=== PATIENT | male | born 1950 | race Caucasian/White ===

== ENCOUNTER 2020-04-12 09:30 | Day surgery (SDC) | payer BC, SELFPAY ==
[2020-03-31 09:57] VITALS: BMI 20.9
--- NOTE | 2020-04-01 12:54 | HP_ITS ---
Intake Vital Signs 03/31/20 Height 5 ft 10 in 03/31/20 Weight: 146 lb 03/31/20 BMI 20.9 03/31/20 BP 94/61 03/31/20 Blood Pressure Location Rt brachial 03/31/20 Position Sitting 03/31/20 Respiration 16 03/31/20 Pulse 64 03/31/20 Pulse Source Monitor 03/31/20 Temp 97.8 F 03/31/20 Temp Source Temporal 03/31/20 Pulse Oximetry (%) 97 03/31/20 Oxygen Delivery Method room air Intake Visit Reasons: HERNIA/ GROIN AREA Welder Gun Required: No Is patient in pain?: No Allergies No Known Allergies Allergy (Verified 03/31/20 10:05) Medications albuterol sulfate 1.25 mg INHALATION PRN ml 03/31/20 [History Confirmed 03/31/20] atenolol 25 mg tablet 12.5 mg PO DAILY tab 03/31/20 [History Confirmed 03/31/20] budesonide 3 mg capsule,delayed,extended release 3 mg PO DAILY ea 03/31/20 [History Confirmed 03/31/20] copper gluconate 2 mg tablet 4 mg PO DAILY tab 03/31/20 [History Confirmed 03/31/20] cyanocobalamin (vitamin B-12) 1,000 mcg/mL injection solution 1,000 mcg IM QMONTH ml 03/31/20 [History Confirmed 03/31/20] fluticasone propionate 50 mcg/actuation nasal spray,suspension 1 spray INTRANASAL DAILY 03/31/20 [History Confirmed 03/31/20] hydrochlorothiazide 25 mg tablet 12.5 mg PO DAILY tab 03/31/20 [History Confirmed 03/31/20] levothyroxine 75 mcg tablet 75 mcg PO DAILY tab 03/31/20 [History Confirmed 03/31/20] loratadine 10 mg tablet 10 mg PO DAILY PRN 03/31/20 [History Confirmed 03/31/20] omeprazole 40 mg capsule,delayed release 40 mg PO DAILY cap 03/31/20 [History Confirmed 03/31/20] potassium chloride 10 mEq tablet,extended release(part/cryst) 10 meq PO DAILY tab 03/31/20 [History Confirmed 03/31/20] [facility] Medical History Acid reflux (Acute) Intermittent abdominal pain (Acute) Asthma (Acute) Anxiety (Acute) Thyroid disease (Acute) Fatigue (Acute) Hypertension (Chronic) Right inguinal hernia (Acute) Right inguinal pain (Acute) Abnormality of immune system (Acute) Surgical History Hx of colonoscopy (Acute) History of esophagogastroduodenoscopy (EGD) (Acute) Status post debridement of bone spur (Acute) History of surgery on arm (Acute) Hx of lumbar discectomy (Acute) Hx of parathyroidectomy (Acute) Family History Daughter Asthma Mother Breast cancer Father Pancreatic cancer Cancer Skin cancer Hypertension Social History (Updated 04/01/20 @ 12:[address] Arben Bond MD) Smoking Status: Never smoker second hand exposure: No alcohol intake: never substance use type: does not use caffeine: No what type of physical activity do you participate in: none frequency: does not exercise seatbelt use: always HPI HPI HPI: LENNY MADRIGAL, is a 69 M who presents to the office today for HPI HPI Surgical H&P: Yes HPI: LENNY MADRIGAL, is a 69 M who presents to the office today for swelling in the right groin as well as pain. He reports is been there since about August. He says is getting worse and last week he said that it bulge and he was unable to push it back in for a long time and it was hurting a lot more than normal. Pain does not radiate. It is in the right groin. He has no other issues at this time. No nausea or vomiting or fevers or chills. ROS General General: Yes fatigue; no weight change, appetite, colon cancer, breast cancer or weakness HEENT HEENT: No difficulty swallowing, eye injury, eye surgery, swollen glands or hoarseness Endo Endocrine: Yes thyroid disease; no diabetes mellitus, thyroid cancer, Hair loss, heat intolerance or cold intolerance Musc Musculoskeletal: No back problems, arthritis, rheumatoid arthritis, gout or joint pain Cardio Cardiovascular: Yes high blood pressure; no murmur, pacemaker, heart disease, atrial fibrillation, heart attack, heart stent, palpitations, shortness of breat with exertion or chest pain Psych Psychiatric: Yes anxiety; no depression or hearing voices Resp Respiratory: No shortness of breath, No sleep apnea, No cough, No COPD, Yes asthma, No emphysema, No wheezing Gastro Gastrointestinal: Yes abdominal pain, No nausea or vomiting, No diarrhea, No constipation, No blood in stool, Yes acid reflux, No hemorrhoids, No ulcers, No gallbladder problem, No black,tarry stools Otto Hematologic: No blood thinners, No blood disorders, No bleeding, No anemia, No blood clots Neuro Neurologic: No system reviewed and no additional complaints, except as docu, No as per HPI, No abnormal walking, No abnormal hearing, No abnormal movements, No abnormal speech, No behavioral changes, No burning sensations, No confusion, No seizure-like activity, No unsteadiness, No dizziness, No localized weakness, No frequent falls, No headache(s), No lack of coordination, No loss of vision, No memory loss, No numbness, No other visual disturbances, No radiating pain, No restless legs, No sensory deficit, No fainting, No tingling, No tremor(s), No weakness, No other Exam Const General: cooperative Orientation: alert, oriented x3 HENMT Head: normal to inspection Ears: hearing grossly normal bilaterally Eyes General: appearance normal, both eyes and all related structures Visual Tellez: normal visual tellez by confrontation Neck Neck: normal visual inspection Chest Chest palpation & inspection: normal inspection of the chest Resp Effort & Inspection: normal respiratory effort Auscultation: clear to auscultation bilaterally Cardio Rate: regular rate Rhythm: regular rhythm Heart Sounds: no murmurs GI Inspection: non-distended Palpation: soft, hernia indirect inguinal on the right, nontender Musc Cervical Spine: normal cervical lordosis, cervical ROM normal Skin General: no rashes or lesions noted Neuro General: alert, oriented x3 Cranial Nerves: CN's II-XI intact bilaterally Cognition: normal cognition Extrem General: normal to inspection, full ROM Psych Appearance: grossly normal Affect: normal affect Assessment & Plan Problems 1. Right inguinal hernia K40.90 Plan The patient has a right inguinal hernia which is reducible at this time. He reports that he did have an episode where he was unable to reduce it for a long time but with laying down he was able to get it reduced. 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 I discussed the risks of both approaches as well as the benefits. I discussed the risk including but not limited to bleeding, infection, groin injury, chronic groin pain, spermatic cord injury and mesh infection. Patient is supposed to start IgG transfusions soon and he is on tapering dose of budesonide due to bowel issues. I will schedule the patient for open right inguinal hernia repair with mesh. Given the fact that it seems to have already incarcerated last week and been difficult to place I would not wait for the immune transfusions to start. We discussed the current risks associated with COVID-19. While it is understood that there is a community spread of COVID-19, the risk of tal COVID-19 while at [facility] ([facility]) is very low; however, the risk cannot be completely mitigated because of the community spread of the disease. We discussed in detail the risk of exposure to and/or potential harm posed by the COVID-19 virus with having a surgery/procedure at this time versus the risk of delaying the surgery/procedure. It is not possible to know either the risk of delaying the surgery or procedure or chance of getting an infection with perfect accuracy, but a joint decision was made to proceed at this time with the scheduled surgery/procedure as indicated on the consent form. Patient was notified that we will need to comply with any screening or testing [facility] wishes to perform or that surgery may be delayed for any positive results. Arben Bond MD Pager: [facility] [address] [place] [address], [address] [place] [address] Office: Coding Level of Care Code Off vis,new,level 4 Diagnoses Right inguinal hernia K40.90 Time Spent (min) 45 04/01/20 1255 <Electronically signed by Arben Bond MD> Date Arben Bond MD I have re-examined the patient. There are no clinical changes since date of exam.
[2020-04-12] VITALS (13 sets, daily range): BP systolic 92–107; BP diastolic 56–81; PULSE 56–66; RESP 15–18; TEMP 35.9–36.3; O2SAT 94–100; BMI 20.9
[2020-04-12] MEDS: Lactated Ringers 1,000 ML 100 ML IV (10:09)
[2020-04-12] MEDS: Cefazolin 2 GM in 0.9% Normal Saline 100 ML IV (10:30)
[2020-04-12 10:34] LABS: Anion Gap 4 (5-15); BUN 18 mg/dL (7-18); BUN/Creat Ratio 21.6 RATIO (10-20); Calcium,Total 8.3 mg/dL (8.5-10.1); Chloride 107 mmol/L (98-107); Creatinine, Serum 0.83 mg/dL (0.70-1.30); EST Glomerular Filtration Rate 97 mL/min (>60); Est Glom Filt Rate - Afr Amer 117 mL/min (>60); Estimated Creatinine Clearance 77.54 ml/min; Glucose 81 mg/dL (74-106); Potassium 3.8 mmol/L (3.5-5.1); Sodium Level 140 mmol/L (136-145)
[2020-04-12] MEDS: Bupiv/Epi 0.25% 30 ML Vial (10:49)
--- NOTE | 2020-04-12 11:00 | HERN_PTH ---
PATIENT: LENNY MADRIGAL LOC: [facility] [place] U#:[id number] AGE/SX: 69/M ROOM: RE04/12/[address]: Dr. Arben Bond MD : 1950 BED: DIS: 04/12/2020 SPEC #: [id number] RECD: 04/12/20 12:09 STATUS: ELIJAH RECheyanne #: [id number] RASHAWN: 04/12/20 11:[address]: Arben Bond DEPT: SURGICAL PATHOLOGY RECD BY: Wily Mckinley ENTERED: 04/13/20 07:58 SP TYPE: Hernia OTHR DR: Dr. Kevin Gaona MD Tissues: HERNIA Procedures: Surgery Specimen Level II HEADER OPERATION: Open inguinal hernia repair with mesh PRE-OP DIAGNOSIS: Right inguinal hernia TISSUE SUBMITTED: Right inguinal hernia sac MICROSCOPIC DIAGNOSIS Right inguinal hernia sac: Mesothelial lined fibroadipose tissue consistent with hernia sac with reactive changes. SJ:cindy 04/14/20 MICROSCOPIC DESCRIPTION Slides are reviewed. GROSS DESCRIPTION Received in fixative is one container labeled with the patient's name and designated right inguinal hernia sac. The specimen consists of a piece of herrera membranous sac measuring 6 x 2.5 x 0.2 cm. No mass lesion is identified. Vehicle Painter sections are submitted in one cassette. / SJ:cindy 04/13/20 TC:5 CPT: 77868
--- NOTE | 2020-04-12 11:59 | OP.PCM_ITS ---
Problem List (1) Right inguinal hernia Status: Acute Report of Operation Date of Procedure: 04/12/20 Pre-Operative Diagnosis: Right inguinal hernia Post-Operative Diagnosis: Same Surgery/Procedure Performed:: Right inguinal hernia repair with mesh Specimen's removed: Hernia sac Description of Procedure: Patient was brought to the operating room and general anesthesia was induced. The right groin was prepped and draped in usual sterile fashion. An incision was marked between the pubic tubercle and the ASIS. The area was anesthetized and then incision was made with a scalpel. This was deepened to the Abdoulaye's fascia. The Abdoulaye's fascia was incised. There is a subcutaneous vein that was isolated and suture ligated. The external aponeurosis was nicked with a scalpel and hemostats were used elevated and scissors were used to make an opening. The inguinal cord was isolated and elevated and a [place] drain was used to retract. The patient appeared to have an indirect as well as direct hernia. The direct hernia was reapproximated using 3-0 Vicryl sutures. The indirect hernia was dissected free from the spermatic cord and opened. It was directly visualized and suture ligated using 2-0 silk suture. The hernia sac was excised and the remainder of the hernia sac was reduced into the abdomen. Next a keyhole mesh was sutured to the pubic tubercle using 2-0 PDS suture and using interrupted sutures was tacked to the shelving portion of the inguinal ligament. Medially the 2-0 PDS sutures were used to tack the mesh to the conjoined tendon. The tails were placed around the cord and sutured together using 2-0 PDS suture. This left an opening large enough for the pinky finger to be placed. The tails were tucked under the external aponeurosis and the inguinal canal was irrigated and suctioned dry. There was good hemostasis and the mesh appeared to be lying flat. The external aponeurosis was reapproximated starting at the lateral edge using a running 3-0 Vicryl suture. Next the Abdoulaye's fascia was closed with interrupted 3-0 Vicryl sutures and the incision was closed with a running 4-0 Monocryl suture as well as Histoacryl glue. The scrotum was inspected and contain both testicles and the patient was awoken and taken to PACU in stable condition and tolerated the procedure well. Grafts/Implants Used: Bard keyhole mesh - Admit VTE Documentation VTE Mechan Device Prophylaxis: SCD's
--- NOTE | 2020-04-12 12:03 | EKG12_ITS ---
Test Reason : PREOP Blood Pressure : / mmHG Vent. Rate : 053 BPM Atrial Rate : 053 BPM P-R Int : 162 ms QRS Dur : 086 ms QT Int : 450 ms P-R-T Axes : 057 041 036 degrees QTc Int : 422 ms Sinus bradycardia Low voltage QRS Borderline ECG When compared with ECG of 26-OCT-2003 10:52, QRS voltage has decreased Nonspecific T wave abnormality now evident in Inferior leads Confirmed by KATELYN EL, SARA ([id number]), editorial writer GERMÁN ESTRADA ([id number]) on 04/16/2020 9:20:10 AM Referred By: Arben Bond Confirmed By:RIC ZEPEDA MD
--- NOTE | 2020-04-12 12:04 | DCINST_ITS ---
Discharge Diet: Light diet - advance as tolerated Discharge Activity: Return to Normal Activity, May Not Drive - for 2-3 days or while taking narcotic pain meds., May Shower - tomorrow Lifting Restrictions: 20 pounds for 6 weeks. Additional Activity Instructions:: Climbing stairs is fine, walking is encouraged. Sitting in bed may be uncomfortable. Sitting up using your lateral muscles (sitting up sideways) is usually more comfortable. Do not drive, work heavy equipment of sign legal documents for 24 hours. If your hernia repair was an ingunial repair, you may have scrotal swelling, an ice pack and/or athletic support can provide more comfort. Pain medications may cause nausea, you should typically eat light foods as you take your pain medications. Pain medications may also cause constipation. If you have difficulty with this, discuss with your doctor. Call your doctor if your incision/area has: Continuous Slow Oozing, Sudden Increased Bleeding, Increased Pain/ Swelling, Increased Redness, Foul Smelling Discharge Call your doctor if you observe: Fever of 101 or Higher Suture Line Care: Avoid Pulling/Pushing, Avoid Pinching/Bending Cleanse incision/area with: Soap & Water Allergies/Adverse Reactions: Allergies No Known Allergies Allergy (Verified 04/12/20 09:52) Medications to take at Discharge albuterol sulfate 1.25 mg INHALATION PRN PRN ml 03/31/20 atenolol 25 mg tablet 12.5 mg PO DAILY tab 03/31/20 budesonide 3 mg capsule,delayed,extended release 3 mg PO DAILY ea 03/31/20 copper gluconate 2 mg tablet 4 mg PO DAILY tab 03/31/20 cyanocobalamin (vitamin B-12) 1,000 mcg/mL injection solution 1,000 mcg IM QMONTH ml 03/31/20 fluticasone propionate 50 mcg/actuation nasal spray,suspension 1 spray INTRANASAL DAILY PRN 03/31/20 hydrochlorothiazide 25 mg tablet 12.5 mg PO DAILY tab 03/31/20 levothyroxine 75 mcg tablet 75 mcg PO DAILY tab 03/31/20 loratadine 10 mg tablet 10 mg PO DAILY PRN 03/31/20 omeprazole 40 mg capsule,delayed release 40 mg PO QHS cap 03/31/20 potassium chloride 10 mEq tablet,extended release(part/cryst) 10 meq PO DAILY tab 03/31/20 Oxycodone HCl/Acetaminophen [Percocet 5-325 mg Tablet] 1 - 2 tab PO Q6H PRN 5 Days #20 tablet 04/12/20 The following prescriptions were given: Oxycodone HCl/Acetaminophen [Percocet 5-325 mg Tablet] 1 - 2 tab PO Q6H PRN 5 Days #20 tablet PRN Reason: Pain Score 4-10/10 Transmission Status: Sent to [facility] Test Results: Test results from this visit will be discussed in further detail at your follow- up appointment, if applicable. Please Follow Up With: Arben Bond MD When: Please call to schedule 2 week follow up appointment. [phone]
== END 2020-04-12 16:35 | disposition home or self-care (01) ==
LOC: SDC 09:31 → AC 09:32
PROVIDERS: Anesthesiology; PCP Internal Medicine; Referring Provider Surgery; Visit Provider Surgery
PROC: (CPT 49505; principal; 2020-04-12 10:45)
DX: K40.90 Unilateral inguinal hernia, without obstruction or gangrene, not specified as recurrent (principal); I10 Essential (primary) hypertension
CPT/HCPCS: 00830; 49505; 36415; 80048; 84443; 87635; 88302; 93005; G2023; J7120; C1781; J2405; U0003

== ENCOUNTER 2020-04-28 19:42 | Emergency (ER) | payer BC, SELFPAY ==
[2020-04-12 09:56] VITALS: BMI 20.9
[2020-04-28 19:43] VITALS: BP 125/72; PULSE 57; RESP 18; TEMP 36.7; O2SAT 99; BMI 20.6
--- NOTE | 2020-04-28 20:45 | ED.VIS.GEN ---
History of Present Illness Chief Complaint: Lower Extremity Injury Informant: Patient Onset: Days Context: Gradual Onset Current Severity: Mild Maximum Severity: Mild Narrative: Patient presents with a painful swollen area to the left calf that he noted a couple days ago. He does have a history of varicose veins. He states he is not been as active as normal the last couple weeks secondary to a recent right inguinal hernia repair. - Past Medical History (1) Anxiety Status: Chronic (2) Asthma Status: Chronic (3) Thyroid disease Status: Chronic (4) Hypertension Status: Chronic Past Medical History - Allergies and Home Meds Allergies/Adverse Reactions: Allergies No Known Allergies Allergy (Verified 04/28/20 19:45) Primary Care Physician: Kevin Gaona MD [Primary Care Provider] - Prior records reviewed: Yes Lives: Spouse/ Significant Other Smoking Status: Never smoker Review of Systems General: Denies: Chills, Fever Eyes: Denies: Visual changes - bilaterally ENT: Denies: Bilateral ear pain Cardiovascular: Denies: Chest pain, Palpitations Respiratory: Denies: Dyspnea, Cough Gastrointestinal: Denies: Abdominal pain, Nausea, Vomiting, Diarrhea Genitourinary: Denies: Dysuria Musculoskeletal: Reports: Swelling, Extremity Pain Skin: Denies: Rash Neurological: Denies: Headache Hematologic: Denies: Easy bruising Allergy: Denies: Uticaria Physical Exam Vital Signs/Narrative: Vital Signs Temp Pulse Resp BP Pulse Ox 04/28/20 19:43 98.0 F 57 L 18 125/72 H 99 Inital Vital Signs reviewed: Yes General: Well nourished, Well developed Head: Normocephalic ENT: Moist mucous membranes Neck: Supple Cardiovascular: Regular rate, Regular rhythm Respiratory: No distress, CTA bilaterally Abdomen: Soft, Nontender Extremities: - - Medial left calf tenderness with focal swelling, consistent with superficial clot. Skin: - - Minimal erythema to the area of interest. No other skin lesions noted. Neurological: Alert, Oriented x3, Normal Strength, Normal Sensation Psychological: Normal affect Diagnostic/Tx/Re-eval Impressions Venous Duplex 04/28/20 20:49 IMPRESSION: DVT within the gastrocnemius vein and superficial thrombophlebitis greater saphenous and lesser saphenous veins Electronically Signed: Mendoza Farr MD at 21:50 EDT , Service support , - Medical Decision Making Patient does have evidence of DVT in the lower leg. After discussing options with patient and at bedside they would prefer to do serial ultrasounds as opposed to starting anticoagulants. I spoke with Dr. May, on-call for the patient's PCP, Dr. Gaona. He asked that the patient call and talk to Dr. Gaona nurseMarta tomorrow. They will be sure the order gets sent to the hospital of patient's choice for follow-up ultrasound. ED Disposition - Plan for ED Patient: Disposition: Home or Assisted Living Diagnosis: DVT (deep venous thrombosis) Instructions: ED DVT Referrals: Kevin Gaona MD [Primary Care Provider] - Additional Instructions: Call Dr Gaona' nurseMarta tomorrow. She will ensure the order for the repeat ultrasound is sent to the hospital for you and instruct you on when to have that test performed.
--- NOTE | 2020-04-28 20:49 | US_ITS ---
We are attempting to reach an attending provider to discuss findings. An addendum with communication details will be sent when the communication is complete. STUDY: VENOUS DOPPLER ULTRASOUND - LEFT LOWER EXTREMITY REASON FOR EXAM: Male, 70 years old. LT LEG PAIN- PALP LUMP MEDIAL CALF TECHNIQUE: Ultrasound evaluation of the deep vein system to include lopez-scale imaging and compression was performed. Lopez-scale imaging and Doppler sonographic evaluation, including duplex spectral analysis and qualitative color flow sonography, was performed. COMPARISON: None. FINDINGS: Superficial thrombophlebitis left medial calf greater saphenous vein and posterior calf lesser saphenous vein. Clot also noted within the gastrocnemius vein. Common Femoral Vein: Normal compression, spontaneity and augmentation. Normal color Doppler. Common Femoral Vein/Greater Saphenous Junction: Normal compression, spontaneity and augmentation. Normal color Doppler. Deep Femoral Vein: Normal compression, spontaneity and augmentation. Normal color Doppler. Femoral Proximal: Normal compression, spontaneity and augmentation. Normal color Doppler. Femoral Middle: Normal compression, spontaneity and augmentation. Normal color Doppler. Femoral Distal: Normal compression, spontaneity and augmentation. Normal color Doppler. Popliteal Vein: Normal compression, spontaneity and augmentation. Normal color Doppler. Posterior Tibial Vein: Normal compression, spontaneity and augmentation. Normal color Doppler. Peroneal Vein: Normal compression, spontaneity and augmentation. Normal color Doppler. US/Venous Duplex Imag/Limited/Uni IMPRESSION: DVT within the gastrocnemius vein and superficial thrombophlebitis greater saphenous and lesser saphenous veins Electronically Signed: Mendoza Farr MD at 21:50 EDT , Service support ,
== END 2020-04-28 22:27 | disposition home or self-care (01) ==
PROVIDERS: Emergency Provider Emergency Medicine; PCP Internal Medicine
DX: I82.409 Acute embolism and thrombosis of unspecified deep veins of unspecified lower extremity (principal); E07.9 Disorder of thyroid, unspecified; F41.9 Anxiety disorder, unspecified; I10 Essential (primary) hypertension; J45.909 Unspecified asthma, uncomplicated
CPT/HCPCS: 93971; 99282

== ENCOUNTER → 2020-05-03 09:03 | Outpatient (CLI) | payer BC, SELFPAY ==
[2020-04-28 19:43] VITALS: BMI 20.6
--- NOTE | 2020-05-03 09:11 | VDLE_ITS ---
Reason For Study: Pain LLE Procedure LEFT Exam performed in department. CFV is compressible, spontaneous, phasic, Patient sent to pharmacy for blood thinner. competent, and demonstrates normal A preliminary report was called and/or faxed augmentation. to Dr. Lalo Lozano. FV is compressible, spontaneous, phasic, competent and demonstrates normal augmentation. T/P Trunk is compressible. PTV is compressible. LT PerV is compressible. Lt PopV is partially compressible consistent with acute DVT, Lt SSV thrombus extends into the Lt PopV Lt SSV and Lt GSV proximal calf are dilated and non compressible consistent with acute SVT. Interpretation Summary Acute deep vein thrombosis is noted in the left popliteal vein. The remainder of the left lower extremity deep venous system is patent and compressible. The left common femoral vein and femoral vein are competent. Acute superficial thrombophlebitis is noted in the left great saphenous vein in the proximal calf, and in the left small saphenous vein, extending into the left popliteal vein. Ordering Physician: Kevin Gaona Referring Physician: Kevin Gaona Performed By: Jasmine Severino, LUTHER, RVT
== END ==
PROVIDERS: PCP Internal Medicine; Referring Provider Internal Medicine; Visit Provider Internal Medicine
DX: M79.662 Pain in left lower leg (principal)
CPT/HCPCS: 93971

== ENCOUNTER 2020-08-22 17:05 | Emergency (ER) | payer BC, SELFPAY ==
[2020-08-22 17:09] VITALS: BP 113/70; PULSE 78; RESP 16; TEMP 36.4; O2SAT 100; BMI 22.0
--- NOTE | 2020-08-22 17:33 | ED.DCSUM_ITS ---
- ER Visit Summary Date of Service: 08/22/20 Chief Complaint: Fall History of Present Illness: The patient is a 70 M who presents after a fall that occurred today. Patient states he was walking and when he turned he lost his balance. Patient states he hit the back of his head on a door. Patient denies any loss of consciousness. Patient was able to stand and ambulate after the fall. Patient denies any other injuries. Patient states his last tetanus was approximately 3 years ago. Patient describes his headache as dull. Patient denies any paresthesias or weakness. Patient denies any other injuries. Physical Examination: Vital signs are stable. Patient is afebrile. Patient is in no acute distress. Skin is warm and dry. There is approximately 3.5 cm full-thickness linear laceration over the right occipital scalp. There is no bony crepitance or step-off noted. There is no active bleeding. There are no foreign bodies noted. Cranial nerves II through XII are intact. Strength is 5/5 bilateral in the upper and lower extremities. There are no sensory deficits noted. Heart was regular rate and rhythm. Lungs are clear and equal bilaterally. Abdomen is soft. Bowel sounds are normal. There is no tenderness. Test Results: CT scan of the brain was obtained. There is no acute intracranial abnormality. This was interpreted by the radiologist and reviewed by myself. Emergency Department Course and Treatment: The wound was cleaned and irrigated with copious amounts of normal saline. The wound was anesthetized with 1% lidocaine with epinephrine locally. The wound was closed with 9 [simple interrupted] marisol under sterile technique. Patient tolerated the procedure well. Bacitracin dressing was applied. Patient was instructed to follow-up with his primary care physician in 5 to 7 days for wound recheck and staple removal. Patient understood and was agreeable with the plan. All questions were answered. Disposition: Discharge home Impression: 1. Scalp laceration 2. Head injury This note was generated with [employer] dictation software. It may contain incorrect words, spelling, and punctuation that were not noted in review of the chart prior to signing ED Disposition - Plan for ED Patient: Disposition: Home or Assisted Living Diagnosis: Occipital scalp laceration, Head injury without concussion or intracranial hemorrhage Instructions: ED Head Injury Adult, ED Laceration Scalp Sutures or Marisol Referrals: Kevin Gaona MD [Primary Care Provider] - 5-7 Days
--- NOTE | 2020-08-22 17:35 | CT_ITS ---
STUDY: CT BRAIN WITHOUT CONTRAST REASON FOR EXAM: Male, 70 years old. FALL, LAC TO HEAD, NO LOC, ON ELIQUIS, HX HTN RADIATION DOSAGE (If Supplied By Facility): CTDIvol = ( 44.99 ) mGy, DLP = ( 812.98 ) mGycm TECHNIQUE: Transaxial CT imaging of the brain was performed without administration of intravenous contrast material. Individualized dose optimization techniques were used for this CT. COMPARISON: No relevant priors. FINDINGS: Normal soft tissue structures. Normal calvarium. Normal size ventricles and extra-axial spaces for the patient''s age. Normal white matter tracts of the cerebral hemispheres. Normal basal ganglia and thalami. Normal brainstem. Normal cerebellum. There is no intracranial hemorrhage. There are no findings of an acute ischemic infarction. Normal visualized paranasal sinuses. CT/Brain/Head without Contrast IMPRESSION: No acute intracranial hemorrhage or mass effect. Electronically Signed: Robb Freeman MD ([facility]) at 18:14 EST , Service support ,
[2020-08-22] MEDS: Lidocaine 1% /Epi 1:100 (20ml) 20 ML Vial INFILT (17:46)
[2020-08-22 18:57] VITALS: BP 106/82
== END 2020-08-22 18:58 | disposition home or self-care (01) ==
PROVIDERS: Emergency Provider Emergency Medicine; PCP Internal Medicine
DX: S01.01XA Laceration without foreign body of scalp, initial encounter (principal); W19.XXXA Unspecified fall, initial encounter; W22.8XXA Striking against or struck by other objects, initial encounter; Y93.01 Activity, walking, marching and hiking; I10 Essential (primary) hypertension
CPT/HCPCS: 12002; 70450; 99284